=== PATIENT | female | born 1940 | race Caucasian/White ===

== ENCOUNTER → 2017-12-22 | Outpatient (CLI) | payer OTHER, MEDICARE ==
[~2017-12-22] MED LIST: ARTHROTEC 501 TABLET PO; ASPIR 8181 M1 PO; ATIVAN0.5 MG PO; CALCIUM 500 MG1 EACH PO; DIOVAN HCT 81 TABLET; DIOVAN HCT 81 TABLET PO; GLUCOSAMINE 1,1 EAC1 PO; HYZAAR 50-121 TABLET PO; K-DUR10 MEQ PO; LEVETIRACETAM500 MG PO; LEVOTHYROXINE150 MCG PO; NORVASC5 MG PO; OMEPRAZOLE20 MG PO; SYNTHROID175 MCG PO; TENORMIN25 MG PO
== END | disposition home or self-care (01) ==
LOC: NUC 10:00
DX: M41.86 Other forms of scoliosis, lumbar region (principal); M47.892 Other spondylosis, cervical region; M19.031 Primary osteoarthritis, right wrist; M19.041 Primary osteoarthritis, right hand; M19.071 Primary osteoarthritis, right ankle and foot; M19.91 Primary osteoarthritis, unspecified site
CPT/HCPCS: 78306; A9503

== ENCOUNTER 2018-03-15 08:46 | Day surgery (SDC) | payer OTHER, MEDICARE ==
[~2018-03-15] VITALS: Ht 167.6 cm; Wt 68.0 kg
[~2018-03-15 08:46] MED LIST changes: +ALEVE220 M2 PO; +KEPPRA250 MG PO; +OCUVITE ADULT1 EAC1 PO; +TOPROL XL25 MG PO; +VITAMIN D31000 UNI2 PO
== END 2018-03-15 10:28 | disposition home or self-care (01) ==
LOC: PAIN 08:46 → SDC 09:15 → PAIN 09:15
PROC: 3E0S33Z Introduction of Anti-inflammatory into Epidural Space, Percutaneous Approach (ICD-10-PCS; principal; 2018-03-15)
PROC: B01B1ZZ Fluoroscopy of Spinal Cord using Low Osmolar Contrast (ICD-10-PCS; principal; 2018-03-15)
DX: M54.16 Radiculopathy, lumbar region (principal); M51.26 Other intervertebral disc displacement, lumbar region; M48.061 Spinal stenosis, lumbar region without neurogenic claudication; M41.9 Scoliosis, unspecified; E03.9 Hypothyroidism, unspecified; I10 Essential (primary) hypertension; K21.9 Gastro-esophageal reflux disease without esophagitis; Z79.82 Long term (current) use of aspirin; Z88.8 Allergy status to other drugs, medicaments and biological substances
CPT/HCPCS: J1100

== ENCOUNTER 2018-04-13 08:21 | Day surgery (SDC) | payer OTHER, MEDICARE ==
[~2018-04-13] VITALS: Ht 167.6 cm; Wt 68.0 kg
== END 2018-04-13 10:00 | disposition home or self-care (01) ==
LOC: PAIN 08:21 → SDC 09:00 → PAIN 10:00
DX: M51.16 Intervertebral disc disorders with radiculopathy, lumbar region (principal); M48.061 Spinal stenosis, lumbar region without neurogenic claudication; M41.9 Scoliosis, unspecified; I10 Essential (primary) hypertension; K21.9 Gastro-esophageal reflux disease without esophagitis; E03.9 Hypothyroidism, unspecified; Z79.82 Long term (current) use of aspirin; F41.9 Anxiety disorder, unspecified
CPT/HCPCS: J1100